=== PATIENT | male | born 1980 | race Caucasian/White ===

== ENCOUNTER 2019-11-26 22:21 | Day surgery (SDC) | payer OTHER, SELFPAY ==
--- NOTE | ~2019-11-26 | XR_ITS ---
EXAMINATION: XR hand LT min 3V DATE: 11/26/2019 23:44 INDICATION: Left hand injury. TECHNIQUE: 3 views of left hand were obtained. COMPARISON: None. FINDINGS: Bone alignment is normal. No fracture. Joint spaces are well maintained. There is a loose b lyndsey at the dorsal aspect of the radiocarpal joint. Lacerations are noted. IMPRESSION: 1. No acute fracture or radiopaque foreign body. Reviewed, dictated and finalized at location A.
--- NOTE | ~2019-11-26 | XR_ITS ---
EXAMINATION: XR wrist RT min 3V DATE: 11/26/2019 23:44 INDICATION: Right wrist injury. TECHNIQUE: 4 views of right wrist were obtained. COMPARISON: None. FINDINGS: Bone alignment is normal. No fracture. 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 IMPRESSION: 1. No fracture or radiopaque foreign body. Reviewed, dictated and finalized at location A.
--- NOTE | ~2019-11-26 | XR_ITS ---
EXAMINATION: XR wrist LT min 3V DATE: 11/26/2019 23:44 INDICATION: Left wrist injury. TECHNIQUE: 4 views of left wrist were obtained. COMPARISON: None. FINDINGS: Bone alignment is normal. No acute fracture. There is a loose body at the dorsal aspect of the radiocarpal joint. There is mild osteoarthritis of first carpometacarpal joint. Lacerations are n oted. IMPRESSION: 1. No acute fracture or radiopaque foreign body. Reviewed, dictated and finalized at location A.
--- NOTE | ~2019-11-26 | XR_ITS ---
EXAMINATION: XR hand RT min 3V DATE: 11/26/2019 23:44 INDICATION: Right hand injury. TECHNIQUE: 3 views of right hand were obtained. COMPARISON: None. FINDINGS: Bone alignment is normal. No fracture. Joint spaces are well maintained. Lacerations are no neo. No radiopaque foreign body. IMPRESSION: 1. No fracture or radiopaque foreign body. Reviewed, dictated and finalized at location A.
--- NOTE | ~2019-11-26 | XR_ITS ---
EXAMINATION: XR forearm RT 2V DATE: 11/26/2019 23:43 INDICATION: Right forearm injury. TECHNIQUE: 2 views of right forearm were obtained. COMPARISON: None. FINDINGS: Bone alignment is normal. No fracture. Joint spaces are well maintained. There is no elbow joint effusion. No radiopaque foreign body. Lacerations are noted. IMPRESSION: 1. No fracture or radiopaque foreign body. Reviewed, dictated and finalized at location A.
[2019-11-26 22:21] VITALS: BP 172/109; PULSE 138; RESP 22; TEMP 36.4; O2SAT 96
[2019-11-27] VITALS (16 sets, daily range): BP systolic 161–206; BP diastolic 90–115; PULSE 94–122; RESP 14–24; TEMP 36.9–37.4; O2SAT 97–100
--- NOTE | 2019-11-27 00:13 | ED.ANIMALBIT ---
HPI - Animal Bite General Chief Complaint: Animal Bite Stated Complaint: dog bites Time Seen by Provider: 11/27/19 00:11 Source: patient Mode of arrival: ambulatory Limitations: no limitations History of Present Illness HPI narrative: This patient is a 39 year old male who presents for evaluation of multiple dog bites to both hands and arms. Patient states he was bitten by his pitbull when he tried to break up a dog fit. HE has numbness to his left 4th and 5th finger. Her reports pain with moving bilateral arms and wrist. He denies numbness or weakness to right hand. Animal: dog Description of animal: household pet Mechanism: bite Related Data Home Medications Medication Instructions Recorded Confirmed No Home Medications 11/27/19 11/27/19 Allergies Allergy/AdvReac Type Severity Reaction Status Date / Time No Known Allergies Allergy Verified 11/27/19 07:31 Review of Systems Review of Systems: All systems reviewed & are unremarkable except as noted in HPI and below Constitutional: Constitutional: Denies chills and Denies fever(s) Neurologic: Denies headache(s) and Reports numbness (left 5th finger) [facility] Past Medical History Medical History Patient denies medical problems Exam Const: General: alert Orientation/consciousness: patient oriented x3 Other: patient appears to be in pain HENMT: Head: normocephalic and atraumatic Mouth: Yes oropharynx normal and Yes moist mucous membranes Throat: uvula midline Eyes: EOM: EOMs intact bilaterally Resp: Effort & Inspection: normal respiratory effort Cardio: Peripheral pulses: Peripheral pulses 2+ throughout Skin: Other: Right arm with a 3 .5 cm elliptical laceration to dorsum of forearm deep into subcutaneous right hand with 3 cm laceration in between web of 1st/2nd fingers no exposed tendon. there are also 2 puncture wounds to right hand left dorsum wrist with 3 cm deep wound mild bleeding 3 puncture wounds to left hand left volar wrist with 4.5 cm deep unable to explore due to pain. PAtient able to flex and extend fingers. Numbness to left 4th, 5th finger Neuro: General: patient oriented x3 and moves all extremities Course Consultations Consultation #1: I Discussed case with DR. Hagen who states he can take patient to OR this morning to explore clean and possible suture. Date: 11/27/19 Time: 00:41 Vital Signs Vital signs: Vital Signs Temperature 97.6 F 11/26/19 22:21 Pulse Rate 138 H 11/26/19 22:21 Respiratory Rate 22 H 11/26/19 22:21 Blood Pressure 172/109 H 11/26/19 22:21 Pulse Oximetry 96 11/26/19 22:21 Temperature 99.3 F 11/27/19 02:58 Pulse Rate 122 H 11/27/19 07:29 Respiratory Rate 24 H 11/27/19 07:29 Blood Pressure 167/97 H 11/27/19 07:29 Pulse Oximetry 97 11/27/19 07:29 MDM - Animal Bite Imaging Data Radiologist's impression: ITS Impressions Forearm X-Ray 11/26/19 23:50 IMPRESSION: 1. No fracture or radiopaque foreign body. Hand X-Ray 11/26/19 23:51 IMPRESSION: 1. No fracture or radiopaque foreign body. Hand X-Ray 11/27/19 00:08 IMPRESSION: 1. No acute fracture or radiopaque foreign body. Wrist X-Ray 11/27/19 00:09 IMPRESSION: 1. No fracture or radiopaque foreign body. Wrist X-Ray 11/27/19 00:10 IMPRESSION: 1. No acute fracture or radiopaque foreign body. Discharge Plan Discharge Clinical Impression: Dog bite of multiple sites of left hand and fingers, Dog bite of multiple sites of hand and fingers Patient Disposition: Still a Patient Condition: Stable Interventions: Discharge Disposition Last Done: 11/27/19 07:44 IV Stop Time Documented Last Done: 11/27/19 07:44 Discharge Date/Time: 11/27/19 07:45
[2019-11-27] MEDS: AMPICILLIN SULB 3 GM/NS 100 ML 3 GM/100 ML VIAL IVPB ×3 (00:41→11:30)
[2019-11-27] MEDS: TETANUS,DIPHTHERIA,AC PERTUSSIS ADULT (0.5 ML) BOOSTRIX IM (05:47)
--- NOTE | 2019-11-27 07:31 | P.HP_ITS ---
H&P: HPI History of Present Illness Chief complaint: dog bites Narrative: Abhijit Kiran is a 39 year old male who sustained multiple puncture and tear injuries to both hands and forearms last night when he tried to separate his pit bull and another dog that were fighting each other. Patients injuries are scattered but seem worse on the left where he is noted to have numbness in the 4th and 5th digits and inability to extend the same fingers. Has a 3 0 cm volar ulnar lac in the left forearm. Review of Systems Review of Systems: Narrative: Pt believes he is otherwise healthy and had no other complaints. All systems reviewed & are unremarkable except as noted in HPI and below PMFSH Past Medical History Medical History Patient denies medical problems Comments Pt takes only occasional Aleve. He has greater than 20 py smoking history. 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 He is not employed. Meds Home Medications and Allergies Home Medications Medication Instructions Recorded Confirmed Type No Home Medications 11/27/19 11/27/19 History Allergies Allergy/AdvReac Type Severity Reaction Status Date / Time No Known Allergies Allergy Verified 11/27/19 07:31 Vital Signs Vital Signs - 24 hr 11/26/19 22:21 11/27/19 00:47 11/27/19 02:58 Temperature 36.4 C 37.4 C Pulse Rate 138 H 108 H 106 H Respiratory Rate 22 H 20 20 Blood Pressure 172/109 H 163/115 H 161/109 H Pulse Oximetry 96 98 98 11/27/19 05:49 11/27/19 07:29 Temperature Pulse Rate 110 H 122 H Respiratory Rate 20 24 H Blood Pressure 167/97 H Pulse Oximetry 98 97 Exam Narrative: Exam Narrative: As above. Assessment and Plan Additional Plan Multiple dog bites to B hands and wrists and forearms with probable tendon and nerve injuries. X-rays of same are all negative. Explore, debride and repair all injuries as indicated under general anesthesia.
[2019-11-27] MEDS: LACTATED RINGERS 1,000 ML 30 ML IV CONT ×2 (08:15→11:23)
--- NOTE | 2019-11-27 08:53 | P.PNAN_ITS ---
Anes - Initial Pre Proc Eval Procedure: Operation Date: 11/27/19 10:00 Proposed Procedures p EXPLORE MULTIPLE DOG BITES BILATERAL UPPER EXTREMTIES - Aamir Hagen MD s REPAIR INTERNAL INJURIES SUCH NERVE,TENDONS INDICATED - Aamir Hagen MD Date/Time: 11/27/19 08:53 Surgeon: Aamir Hagen MD Pre Op Diagnosis: dog bites Patient Data Age: 39 Gender: M Height: 5 ft 10 in Weight: 86.6 kg Last Vital Signs Temp 37.1 C 11/27/19 08:21 Pulse 117 H 11/27/19 08:21 Resp 22 H 11/27/19 08:21 BP 183/104 H 11/27/19 08:21 Pulse Ox 100 11/27/19 08:21 Allergies Allergy/AdvReac Type Severity Reaction Status Date / Time No Known Allergies Allergy Verified 11/27/19 07:31 Home Medications Medication Instructions Recorded Confirmed Type No Home Medications 11/27/19 11/27/19 History Patient hx anesthesia problems: none Family hx anesthesia problems: none [facility] Past Medical History Medical History (Updated 11/27/19 @ 08:57 by Antoni Mcconnell MD) Asthma HTN (hypertension) Patient denies medical problems Polysubstance abuse Anes - Eval Final PreProcedure Day of Procedure 11/27/19 08:53 Patient weight: overweight Heart: regular rate and rhythm Lungs: clear to auscultation Airway: Mallampati scale class II Neurological: alert and oriented Last oral intake: >/= 8 hours ASA classification: III Emergent: no Anesthetic plan: proceed Anesthesia type and monitoring: general LMA and standard monitoring Informed Consent: The patient's anesthetic plan and its attendant risks and benefits were discussed with the patient/family/POA. Questions were solicited and answers provided to the satisfaction of the patient/family/POA.
[2019-11-27] MEDS: LIDO 1%/EPINEPHRINE 1:100,000 20 ML VIAL INFILTRATE (10:23)
--- NOTE | 2019-11-27 11:31 | PM.OP ---
Procedure Note - Brief Procedure Note - Brief Date of procedure: 11/27/19 Pre-op diagnosis: dog bites Multiple dog bites to both upper extremities with possible tendon and ulnar nerve injury. Post-op diagnosis: other (Multiple dog bites to both upper extremities without major nerve or tendon injury.) Procedure performed: Irrigation of multiple dog bites to both hands, forearms. Exploration of left upper extremity extensor and flexor tendons and ulnar nerve and artery. Simple skin repair right forearm 4.0 cm, left hand and forearm 10 cm. Surgeon: Aamir aHgen MD Biology Specimen Technician: Chantell Estimated blood loss (mL): 20 Tourniquet time (min): 50 Drains: No Packing: No Pathology: none sent Complications: No immediate complications Condition: stable Disposition: PACU
--- NOTE | 2019-11-27 11:50 | PM.PROC ---
Procedure Note - Detailed Date of procedure: 11/27/19 Pre-op diagnosis: dog bites Multiple dog bites to both hands and forearms with possible ulnar nerve and tendon injury on the left Post-op diagnosis: other (Multiple dog bites to both hands and forearms with intact ulnar nerve, ulnar artery and flexor and extensor tendons.) Procedure performed: Irrigation and cleansing of multiple dog bite punctures in tears to both hands and forearms. Exploration of the ulnar nerve and ulnar artery on the left and exploration of flexor and extensor tendons in the forearm and hand on the left. Simple repair of lacerations on the right upper extremity 4 cm and simple repair of lacerations of the left upper extremity 10 cm Description of procedure: The patient was taken from the holding area to the operating room and placed supine on the operating table. The patient was given general endotracheal anesthesia and both extremities were prepped and draped separately on hand tables. Prior to administration of anesthesia the patient admitted that he had some degree of sensation in all digits of the left hand where he earlier had said that he was numb in the ulnar two. He had intact sensation in the dorsum and the palm of the hand as well. He still was unable to fully extend the 4th and 5th fingers on left hand. He was generally very uncomfortable and not highly cooperative to either these exams. Skin perfusion seemed adequate. Suspicion for tendon injury was low, although the patient was unable to extend the 4th and 5th digits of the left hand. He had lacerations at 2 levels the could of been the cause of that. On the operating table, the right upper extremity was examined briefly. He had multiple puncture sites around the hand and thumb area and some tears in the dorsal forearm. Exam of these digitally determined they were not of major concern and I left the 1st assistant manager to irrigate these wounds and to close loosely the dorsal forearm laceration. My attention was turned to the left upper extremity where all wounds were carefully examined. The worst these were 2 dorsal wounds on the ulnar upper extremity, 1 on the hand and 1 on the distal forearm. And the third was on the ulnar forearm but crossed the midline. This was a couple of cm proximal to the wrist flexion crease. Each of these wounds was enlarged with a 15. Blade creating zigzag incisions allowing flap elevation locally to ascertain the depth of trauma. In all these cases deep fascia had been violated. The fascia was further opened to examine in both directions the condition of muscle and/or tendons. Specific tendons were identified and noted to be intact. There was hematoma around the tendons and the muscle in each of these cases. These were not of sufficient size that required specific drainage. They may however have contributed to the pain the patient was feeling. The 2 dorsal wounds 1 on the hand and 1 on the forearm were loosely closed with interrupted 3-0 nylon suture the this left space for drainage as needed. The more significant wound was on the ulnar volar forearm. This actually crossed the palmaris longus. The patient had no symptoms of median nerve injury. The wound was explored and muscle bellies were identified and again some of these protrude through tears in the fascia and most likely accounted for some of the difficulty moving the fingers. The median nerve was not specifically dissected or visualized. The wrist flexors were identified and found to be intact the ulnar nerve and ulnar artery were dissected and found to be intact with minimal hematoma surrounding this area. During his procedure the fingers lay in a normal cascade. I believe numbness in the ulnar digits was a result of local pressure on the ulnar nerve. These wounds were also sutured with 3-0 nylon allowing some space for drainage. Both extremities were dressed with large sheets of Xeroform, bulky gauze and no compression wrap. The rusty
--- NOTE | 2019-11-27 11:53 | SUR.PHASEI ---
[address] XIONG OF PT BP BEING HYPERTENSIVE 202/102, PT RESTING COMFORTABLY. NO NEW ORDERS
[2019-11-27] MEDS: METOPROLOL TARTRATE INJ 5 MG/5 ML VIAL IV PUSH (12:02)
== END 2019-11-27 14:30 | disposition home or self-care (01) ==
LOC: ANHED 11-27 07:27 → ANHSURGERY 11-27 07:33
PROVIDERS: Emergency Provider General Practice; PCP Emergency Medicine; Visit Provider Plastic Surgery
PROC: (CPT 12005; principal; 2019-11-27 10:00)
PROC: (CPT 12005; 2019-11-27 10:00)
DX: S61.452A Open bite of left hand, initial encounter (principal); S61.451A Open bite of right hand, initial encounter; S61.258A Open bite of other finger without damage to nail, initial encounter; S51.852A Open bite of left forearm, initial encounter; S51.851A Open bite of right forearm, initial encounter; W54.0XXA Bitten by dog, initial encounter; Z23 Encounter for immunization
CPT/HCPCS: 12005; 73090; 73110; 73130; 90471; 90715; 96365; 96366; 96374; 96375; 96376; 99285; A9270; J0131; J0295; J1100; J1170; J2250; J2405; J2704; J3010; J7120